=== PATIENT | female | born 1970 | race Caucasian/White ===

== ENCOUNTER → 2023-03-03 | Outpatient (CLI) | payer OTHER ==
--- NOTE | 2023-03-04 11:31 | MR ---
EXAMINATION TYPE: MR lumbar spine wo con DATE OF EXAM: 03/03/2023 3:24 PM COMPARISON: CT 8 12/26/2013.. CLINICAL INDICATION: Female, 52 years old with history of M54.50 LOW BACK PAIN, UNSPECIFIED; PHH, Low back pain that radiates down right leg. TECHNIQUE: Multi planar, multi sequence imaging was performed utilizing: T1-weighted, T2-weighted, a nd turbo inversion recovery imaging of the lumbar spine. IV Contrast: None. FINDINGS: Alignment: The lumbar vertebral bodies have preserved heights and alignment. Cord: The conus medullaris and the distal spinal cord appear unremarkable with regards to their signa l intensity and morphology. Bones/Discs: Postsurgical changes at L4-L5. Scattered Modic endplate changes. There is disc desiccati on present throughout the spine. Facet joint arthropathy seen throughout the spine. No abnormal bony edema on inversion recovery sequences. T12-L1: No evidence of significant spinal canal stenosis or neural foraminal stenosis. L1-L2: Disc bulge and facet joint arthropathy result in mild spinal canal and mild to moderate bilate ral neural foraminal stenosis. L2-L3: Disc bulge and facet joint arthropathy result in mild spinal canal and moderate bilateral neur al foraminal stenosis. L3-L4: Disc bulge with moderate spinal canal stenosis. There is moderate to severe right and moderate left neural foraminal stenosis. L4-L5: Postsurgical changes with susceptibility artifact limits evaluation. The spinal canal is paten t. There is mild bilateral neural foraminal stenosis. No evidence of significant spinal canal stenosi s or neural foraminal stenosis. L5-S1: The disc is rounded posterior morphology without significant spinal canal stenosis. Facet join t arthropathy with mild neural foraminal stenosis. No significant spinal canal or neural foraminal stenosis in the remainder of the visualized levels. Other findings: None. IMPRESSION: Significant motion artifact limits evaluation. 1. L3-L4 moderate spinal canal stenosis secondary to disc bulging. 2. Multilevel degeneration changes with facet joint arthropathy worse at right L3-L4 with moderate t o severe right neural foraminal stenosis.
== END | disposition home or self-care (01) ==
LOC: RADMRIMAIN 14:14
PROVIDERS: ATTEND Internal Medicine
DX: M51.16 Intervertebral disc disorders with radiculopathy, lumbar region (principal); M47.26 Other spondylosis with radiculopathy, lumbar region; M48.061 Spinal stenosis, lumbar region without neurogenic claudication; M99.73 Connective tissue and disc stenosis of intervertebral foramina of lumbar region
CPT/HCPCS: 72148